=== PATIENT | female | born 1995 | race Caucasian/White ===

== ENCOUNTER 2017-10-30 19:59 | Emergency (ER) | payer SELFPAY ==
--- NOTE | 2017-10-30 20:22 | PDOC ---
Rapid Medical Evaluation Time Seen by Provider: 10/30/17 20:16 Medical Evaluation: 10/30/17 20:16 I have performed a brief in-person evaluation of this patient. The patient presents with a chief complaint of: headache x 1 week Patient reports left sided headache with nausea, denies blurred vision or photophobia Pertinent physical exam findings: NAD normocephalic, neck supple, no lumps felt on scalp unlabored breathing grossly neurologically intact I have ordered the following: urine pt, saline lock, acetaminophen, iv solution and reglan The patient will proceed to the ED for further evaluation.
[2017-10-30 20:24] VITALS: BMI 22.0
[2017-10-30] MEDS ORDERED: ACETAMINOPHEN 500 MG TABLET (FP) PO ONE (20:24)
[2017-10-30] MEDS ORDERED: METOCLOPRAMIDE HCL INJECTION 10 MG/2 ML VIAL IVPUSH ONE (20:25)
[2017-10-30] MEDS ORDERED: SODIUM CHLORIDE 0.9% 500 ML INFUS.BAG IV ONE (20:25)
--- NOTE | 2017-10-30 20:39 | PDOC ---
Attending Attestation - Resident Resident Name: Les Vee - ED Attending Attestation I have performed the following: I have examined & evaluated the patient, The case was reviewed & discussed with the resident, I agree w/resident's findings & plan, Exceptions are as noted
[2017-10-30] MEDS ORDERED: METOCLOPRAMIDE HCL INJECTION 10 MG/2 ML VIAL ONE (20:46)
[2017-10-30] MEDS ORDERED: ACETAMINOPHEN 325 MG TABLET (FP) ONE (20:46)
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
[2017-10-30] MEDS ORDERED: ACETAMINOPHEN/CAFFEINE/BUTALBITAL 1 TAB PO ONE (21:21)
[2017-10-30] MEDS ORDERED: ACETAMINOPHEN/CAFFEINE/BUTALBITAL 1 TAB ONE (21:27)
[2017-10-30] MEDS ORDERED: DEXAMETHASONE SOD PHOSPHATE 10 MG/1 ML VIAL IVPUSH ONE (22:16)
[2017-10-30] MEDS ORDERED: KETOROLAC TROMETHAMINE 30 MG/1 ML VIAL IVPUSH ONE (22:16)
[2017-10-30] MEDS ORDERED: DEXAMETHASONE SOD PHOSPHATE 10 MG/1 ML VIAL ONE (22:20)
[2017-10-30] MEDS ORDERED: KETOROLAC TROMETHAMINE 30 MG/1 ML VIAL ONE (22:20)
[2017-10-30] MEDS ORDERED: SUMATRIPTAN SUCCINATE 6 MG/0.5 ML VIAL SQ ONE (23:55)
[2017-10-30] MEDS ORDERED: SUMATRIPTAN SUCCINATE 6 MG/0.5 ML VIAL ONE (23:59)
[2017-10-31 00:30] VITALS: BP 134/80; PULSE 82; TEMP 98.3
== END 2017-10-31 00:48 | disposition home or self-care (01) ==
LOC: JER 19:59
PROC: 3E0333Z Introduction of Anti-inflammatory into Peripheral Vein, Percutaneous Approach (ICD-10-PCS; principal; 2017-10-30)
PROC: 3E0333Z Introduction of Anti-inflammatory into Peripheral Vein, Percutaneous Approach (ICD-10-PCS; 2017-10-30)
PROC: 3E033GC Introduction of Other Therapeutic Substance into Peripheral Vein, Percutaneous Approach (ICD-10-PCS; 2017-10-30)
PROC: 3E033GC Introduction of Other Therapeutic Substance into Peripheral Vein, Percutaneous Approach (ICD-10-PCS; 2017-10-30)
PROC: 3E023GC Introduction of Other Therapeutic Substance into Muscle, Percutaneous Approach (ICD-10-PCS; 2017-10-30)
DX: R51 Headache (principal)
CPT/HCPCS: 84703; 99282-25; J1100

== ENCOUNTER 2018-03-02 16:49 | Emergency (ER) | payer SELFPAY ==
[2018-03-02 16:55] VITALS: BP 125/83; PULSE 96; TEMP 98.4; BMI 22.6
[2018-03-02 17:17] LABS: URINE APPEARANCE CLEAR; URINE BILIRUBIN NEGATIVE (<2.0 mg/dL); URINE COLOR LTYELLOW; URINE GLUCOSE (UA) NEGATIVE (NEGATIVE); URINE KETONE NEGATIVE (NEGATIVE); URINE LEUK ESTERASE NEGATIVE (NEGATIVE); URINE NITRITE NEGATIVE (NEGATIVE); URINE PROTEIN NEGATIVE (NEGATIVE); URINE UROBILINOGEN NEGATIVE mg/dL (0.2-1.0)
[2018-03-02 17:20] LABS: EPI CELLS RARE /HPF (FEW); URINE MUCUS RARE
--- NOTE | 2018-03-02 17:55 | PDOC ---
History of Present Illness - General Chief Complaint: Vaginal Bleeding Stated Complaint: VAGINAL BLEEDING (9 WKS ) History Source: Patient - History of Present Illness Timing/Duration: reports: other Past History - Past Medical History Allergies/Adverse Reactions: Allergies Allergy/AdvReac Type Severity Reaction Status Date / Time No Known Allergies Allergy Verified 03/02/18 16:51 Home Medications: Ambulatory Orders NK [No Known Home Medication] 10/30/17 COPD: No Other medical history: DENIES. - Suicide/Smoking/Psychosocial Hx Smoking History: Never smoked Have you smoked in the past 12 months: No Hx Alcohol Use: No Drug/Substance Use Hx: No Substance Use Type: None Review of Systems - Review of Systems Constitutional: No: Fever ABD/GI: No: Nausea, Vomiting, Abdominal cramping : No: Dysuria, Flank Pain, Hematuria *Physical Exam - Vital Signs Last Vital Signs Temp Pulse Resp BP Pulse Ox 98.4 F 96 H 17 125/83 97 03/02/18 16:51 03/02/18 16:51 03/02/18 16:51 03/02/18 16:51 03/02/18 16:51 - Physical Exam General Appearance: Yes: Appropriately Dressed. No: Apparent Distress HEENT: positive: Normal Voice Neck: positive: Supple Respiratory/Chest: negative: Respiratory Distress Female Pelvic Exam: positive: normal external exam, normal adnexa, vaginal bleeding (minimal vag bleed, os closed). negative: cervical os closed, CMT, lesions Gastrointestinal/Abdominal: positive: Soft. negative: Tender Musculoskeletal: negative: CVA Tenderness Integumentary: positive: Dry, Warm Neurologic: positive: Fully Oriented, Alert, Normal Mood/Affect ED Treatment Course - ADDITIONAL ORDERS Additional order review: Laboratory Results 03/02/18 03/02/18 17:05 17:05 Urine Color Ltyellow Urine Appearance Clear Urine pH 6.0 Ur Specific [place] 1.012 Urine Protein Negative Urine Glucose (UA) Negative Urine Ketones Negative Urine Blood 3+ H Urine Nitrite Negative Urine Bilirubin Negative Urine Urobilinogen Negative Ur Leukocyte Esterase Negative Urine WBC (Auto) 5 Urine RBC (Auto) 24 Ur Epithelial Cells Rare Urine Mucus Rare Urine HCG, Qual Positive Medical Decision Making - Medical Decision Making 03/02/18 17:55 22-year-old female, 0, irreg menses, LMP 12/27/17, found out she was >2 weeks ago, no yet, here w/ vaginal spotting x several days w/ /small clots, no abd pain, dysuria, n/v/f/c. See exam 1st trimester bleed Stable w/ benign abd and closed os w/ minimal vag bleed, no clots -ua neg -T&S -Beta -US 03/02/18 19:05 US read as +IUP @5 weeks 5 days w/ no cardiac activity, ? demise per radiology. Pt signed out to [facility] pending T&S and beta. Pt will need 48 hr f /u
--- NOTE | 2018-03-02 19:48 | PDOC ---
*Physical Exam - Vital Signs Last Vital Signs Temp Pulse Resp BP Pulse Ox 98.4 F 96 H 17 125/83 97 03/02/18 16:51 03/02/18 16:51 03/02/18 16:51 03/02/18 16:51 03/02/18 16:51 ED Treatment Course - LABORATORY CBC & Chemistry Diagram: 03/02/18 19:40 - ADDITIONAL ORDERS Additional order review: Laboratory Results 03/02/18 03/02/18 03/02/18 18:16 18:16 17:05 Beta HCG, Quant Cancelled Urine Color Ltyellow Urine Appearance Clear Urine pH 6.0 Ur Specific [place] 1.012 Urine Protein Negative Urine Glucose (UA) Negative Urine Ketones Negative Urine Blood 3+ H Urine Nitrite Negative Urine Bilirubin Negative Urine Urobilinogen Negative Ur Leukocyte Esterase Negative Urine WBC (Auto) 5 Urine RBC (Auto) 24 Ur Epithelial Cells Rare Urine Mucus Rare Urine HCG, Qual Blood Type A POSITIVE Antibody Screen Negative 03/02/18 17:05 Beta HCG, Quant Urine Color Urine Appearance Urine pH Ur Specific [place] Urine Protein Urine Glucose (UA) Urine Ketones Urine Blood Urine Nitrite Urine Bilirubin Urine Urobilinogen Ur Leukocyte Esterase Urine WBC (Auto) Urine RBC (Auto) Ur Epithelial Cells Urine Mucus Urine HCG, Qual Positive Blood Type Antibody Screen Medical Decision Making - Medical Decision Making 03/02/18 19:48 type and screen: a + cbc: pending. plan to d/c patient has a obstetrics gyn clinic for follow up. *DC/Admit/Observation/Transfer Diagnosis at time of Disposition: Threatened in early - Discharge Dispostion Disposition: HOME - Referrals - Patient Instructions Printed Discharge Instructions: DI for Miscarriage Additional Instructions: Drink plenty of fluids Return to the emergency room if you are soaking through 2 pads per hour, Fever, severe abdominal pain. Follow-up with your tumor registrar in 2 days for repeat ultrasound and lab work. Last beta hC.6 - Post Discharge Activity Forms/Work/School Notes: Back to Work
[2018-03-02 19:49] LABS: BASO % 0.2 % (0-2.0); EOS % 0.2 % (0-4.5); HEMATOCRIT 39.7 % (32.4-45.2); HEMOGLOBIN 13.4 GM/dL (10.7-15.3); LYMPH % 22.8 % (8-40); MCH 30.8 pg (25.7-33.7); MCHC 33.7 g/dl (32.0-36.0); MEAN CELL VOLUME 91.6 fl (80-96); MEAN PLT VOLUME 6.9 fl (7.5-11.1); MONO % 4.8 % (3.8-10.2); PLATELET COUNT 250 K/MM3 (134-434); RBC 4.34 M/mm3 (3.60-5.2); RDW 13.5 % (11.6-15.6)
== END 2018-03-02 20:42 | disposition home or self-care (01) ==
LOC: JER 16:49
DX: O26.891 Other specified pregnancy related conditions, first trimester (principal); O20.0 Threatened abortion; Z3A.01 Less than 8 weeks gestation of pregnancy
CPT/HCPCS: 36415; 76801-TC; 76830-TC; 81003; 81015; 84702; 84703; 85025; 86850; 86900; 86901; 99282-25

== ENCOUNTER 2018-03-06 19:59 | Emergency (ER) | payer OTHER ==
[2018-03-06 20:11] VITALS: BP 130/60; PULSE 77; TEMP 98.2; BMI 22.6
--- NOTE | 2018-03-06 20:40 | PDOC ---
History of Present Illness - General Chief Complaint: Vaginal Bleeding Stated Complaint: VAGINAL BLEEDING (5WKS ) Time Seen by Provider: 03/06/18 20:40 Past History - Past Medical History Allergies/Adverse Reactions: Allergies Allergy/AdvReac Type Severity Reaction Status Date / Time No Known Allergies Allergy Verified 03/06/18 20:11 Home Medications: Ambulatory Orders NK [No Known Home Medication] 10/30/17 COPD: No - Reproductive History (#): 1 Para: 0 - Suicide/Smoking/Psychosocial Hx Smoking History: Never smoked Have you smoked in the past 12 months: No Hx Alcohol Use: No Drug/Substance Use Hx: No Substance Use Type: None *Physical Exam - Vital Signs Last Vital Signs Temp Pulse Resp BP Pulse Ox 98.2 F 77 18 130/60 99 03/06/18 20:09 03/06/18 20:09 03/06/18 20:09 03/06/18 20:09 03/06/18 20:09
--- NOTE | 2018-03-06 20:44 | PDOC ---
History of Present Illness - General Chief Complaint: Vaginal Bleeding Stated Complaint: VAGINAL BLEEDING (5WKS ) Time Seen by Provider: 03/06/18 20:40 - History of Present Illness Initial Comments: 03/06/18 20:45 Ms. Troy is a 22 yo female at 6w2d by US (Patient reports LMP December 27) w / no pmh who presents for evaluation of vaginal bleeding. She had originally presented 03/02/18 for same problem; TVUS was not able to evaluate activity. Patient reports she has had continued and increased bleeding and reports she has had abdominal pain today as well. Bleeding is now consistent with her menstrual cycle. Patient has not established PHOTO TECHNOLOGIST f/u at this time. The patient denies chest pain, shortness of breath, headache and dizziness. Denies fever, chills, nausea, vomit, diarrhea and constipation. Denies dysuria, frequency, urgency and hematuria. Allergies: NKDA Past History - Past Medical History Allergies/Adverse Reactions: Allergies Allergy/AdvReac Type Severity Reaction Status Date / Time No Known Allergies Allergy Verified 03/06/18 20:11 Home Medications: Ambulatory Orders NK [No Known Home Medication] 10/30/17 COPD: No - Reproductive History (#): 1 Para: 0 - Suicide/Smoking/Psychosocial Hx Smoking History: Never smoked Have you smoked in the past 12 months: No Hx Alcohol Use: No Drug/Substance Use Hx: No Substance Use Type: None Review of Systems - Review of Systems Comments:: 03/06/18 20:45 GENERAL/CONSTITUTIONAL: No fever or chills. No weakness. HEAD, EYES, EARS, NOSE AND THROAT: No change in vision. No ear pain or discharge. No sore throat. CARDIOVASCULAR: No chest pain or shortness of breath RESPIRATORY: No cough, wheezing, or hemoptysis. GASTROINTESTINAL: +Generalized abdominal pain. No nausea, vomiting, diarrhea or constipation. GENITOURINARY: +Pelvic pain as described. No dysuria, frequency, or change in urination. MUSCULOSKELETAL: No joint or muscle swelling or pain. No neck or back pain. SKIN: No rash NEUROLOGIC: No headache, vertigo, loss of consciousness, or change in strength/ sensation. ENDOCRINE: No increased thirst. No abnormal weight change HEMATOLOGIC/LYMPHATIC: No anemia, easy bleeding, or history of blood clots. ALLERGIC/IMMUNOLOGIC: No hives or skin allergy. *Physical Exam - Vital Signs Last Vital Signs Temp Pulse Resp BP Pulse Ox 98.2 F 77 18 130/60 99 03/06/18 20:09 03/06/18 20:09 03/06/18 20:09 03/06/18 20:09 03/06/18 20:09 - Physical Exam Comments: 03/06/18 20:45 GENERAL: Awake, alert, and fully oriented, in no acute distress HEAD: No signs of trauma, normocephalic, atraumatic EYES: PERRLA, EOMI, sclera anicteric, conjunctiva clear ENT: Auricles normal inspection, hearing grossly normal, nares patent, oropharynx clear without exudates. Moist mucosa NECK: Normal ROM, supple, no lymphadenopathy, JVD, or masses LUNGS: No distress, speaks full sentences, clear to auscultation bilaterally HEART: Regular rate and rhythm, normal S1 and S2, no murmurs, rubs or gallops, peripheral pulses normal and equal bilaterally. ABDOMEN: +Generalized abdominal tenderness. Soft, normoactive bowel sounds. No guarding, no rebound. No masses EXTREMITIES: Normal inspection, Normal range of motion, no edema. No clubbing or cyanosis. NEUROLOGICAL: Cranial nerves II through XII grossly intact. Normal speech, normal gait, no focal sensorimotor deficits SKIN: Warm, Dry, normal turgor, no rashes or lesions noted. : +Moderate blood noted in vaginal vault. Os closed. Pelvic tenderness noted. ED Treatment Course - LABORATORY CBC & Chemistry Diagram: 03/06/18 21:25 03/06/18 21:25 Medical Decision Making - Medical Decision Making 03/06/18 22:40 Ms. Troy is a 22 yo female w/ pmh as described who presents for evaluation of bleeding in . Patient prior beta 4 days ago [place] [id number], patient noted to have beta to 4954 today. Exam notable for blood on vaginal exam. Patient informed she is likely losing her , no other acute process suspected at this time. Discharging patient to home with PHOTO TECHNOLOGIST follow-up for confirmation. Discharging to home. Laboratory Results - last 24 hr 03/06/18 03/06/18 03/06/18 21:25 21:25 21:41 WBC 9.8 RBC 4.00 Hgb 12.7 Hct 36.8 MCV 91.9 MCH 31.7 MCHC 34.5 RDW 13.4 Plt Count 232 MPV 7.2 L Absolute Neuts (auto) 7.5 Neutrophils % 76.1 Lymphocytes % 18.1 D Monocytes % 5.2 Eosinophils % 0.5 D Basophils % 0.1 Nucleated RBC % 0 Sodium 143 Potassium 3.9 Chloride 109 H Carbon Dioxide 25 Anion Gap 9 BUN 11 Creatinine 0.7 Creat Clearance w eGFR > 60 Random Glucose 98 Calcium 8.8 Total Bilirubin 0.3 AST 18 ALT 22 Alkaline Phosphatase 54 Total Protein 7.2 Albumin 3.9 Beta HCG, Quant 4954.4 Urine Color Ltyellow Urine Appearance Clear Urine pH 5.0 Ur Specific [place] 1.020 Urine Protein Negative Urine Glucose (UA) Negative Urine Ketones Negative Urine Blood 3+ H Urine Nitrite Negative Urine Bilirubin Negative Urine Urobilinogen Negative Ur Leukocyte Esterase Negative Urine WBC (Auto) 3 Urine RBC (Auto) 93 Ur Epithelial Cells Rare Urine Mucus Rare *DC/Admit/Observation/Transfer Diagnosis at time of Disposition: Threatened in early - Discharge Dispostion Disposition: HOME - Referrals Referrals: Theresa Farrell MD [Staff Physician] - - Patient Instructions Printed Discharge Instructions: DI for Miscarriage Additional Instructions: Please follow-up with PHOTO TECHNOLOGIST for further evaluation. Return to ER if any continued bleeding, fever, chills, pain, or other concerning symptoms. Print Language: [place] - Post Discharge Activity
[2018-03-06] MEDS ORDERED: ACETAMINOPHEN 1000 MG/100 ML VIAL (NON FORMULARY) IVPB ONE (20:55)
[2018-03-06 21:36] LABS: BASO % 0.1 % (0-2.0); EOS % 0.5 % (0-4.5); HEMATOCRIT 36.8 % (32.4-45.2); HEMOGLOBIN 12.7 GM/dL (10.7-15.3); LYMPH % 18.1 % (8-40); MCH 31.7 pg (25.7-33.7); MCHC 34.5 g/dl (32.0-36.0); MEAN CELL VOLUME 91.9 fl (80-96); MEAN PLT VOLUME 7.2 fl (7.5-11.1); MONO % 5.2 % (3.8-10.2); NEUT % 76.1 % (42.8-82.8); PLATELET COUNT 232 K/MM3 (134-434); RDW 13.4 % (11.6-15.6); WHITE BLOOD COUNT 9.8 K/mm3 (4.0-10.0)
[2018-03-06 21:55] LABS: URINE APPEARANCE CLEAR; URINE BILIRUBIN NEGATIVE (<2.0 mg/dL); URINE COLOR LTYELLOW; URINE GLUCOSE (UA) NEGATIVE (NEGATIVE); URINE KETONE NEGATIVE (NEGATIVE); URINE LEUK ESTERASE NEGATIVE (NEGATIVE); URINE NITRITE NEGATIVE (NEGATIVE); URINE PROTEIN NEGATIVE (NEGATIVE); URINE UROBILINOGEN NEGATIVE mg/dL (0.2-1.0)
[2018-03-06 22:00] LABS: ALBUMIN 3.9 g/dl (3.4-5.0); ANION GAP 9 (8-16); BILIRUBIN,TOTAL 0.3 mg/dL (0.2-1.0); BLOOD UREA NITROGEN 11 mg/dL (7-18); CALCIUM 8.8 mg/dL (8.5-10.1); CHLORIDE 109 mmol/L (98-107); CO2 25 mmol/L (21-32); CREATININE 0.7 mg/dL (0.55-1.02); GLUCOSE,RANDOM 98 mg/dL (74-106); SGPT/ALT 22 U/L (12-78); SODIUM 143 mmol/L (136-145); TOT PROT 7.2 g/dl (6.4-8.2)
[2018-03-06] MEDS ORDERED: SODIUM CHLORIDE 1,000 ML IV STA (22:02)
[2018-03-06 22:09] LABS: EPI CELLS RARE /HPF (FEW); URINE MUCUS RARE
[2018-03-06 22:14] LABS: ALK PHOS 54 U/L (45-117)
[2018-03-06 22:34] LABS: POTASSIUM 3.9 mmol/L (3.5-5.1); SGOT/AST 18 U/L (15-37)
--- NOTE | 2018-03-07 01:22 | PDOC ---
Attending Attestation - HPI HPI: 03/07/18 01:27 The patient is a 22 year old female currently 6 weeks with no past medical history who presents to the emergency department for evaluation of vaginal bleeding. The patient reports increased vaginal bleeding with associated abdominal pain. Pt reports having transvaginal ultrasound done on with failure to evaluate activity. LMP 12/27/17. The patient denies cp, sob, headache, and dizziness. Denies f/c, n/v, and any bowel/rurinary symptoms. Allergies: NKDA Social History: No reported alcohol, cigarette, or drug use. - Physicial Exam PE: GENERAL: Awake, alert, and fully oriented, in no acute distress EYES: PERRLA, EOMI, sclera anicteric, conjunctiva clear NECK: Normal ROM, supple, no lymphadenopathy, JVD, or masses LUNGS: Breath sounds equal, clear to auscultation bilaterally. No wheezes, and no crackles HEART: Regular rate and rhythm, normal S1 and S2, no murmurs, rubs or gallops ABDOMEN: Soft, nontender, normoactive bowel sounds. No flank pain. No guarding, no rebound. No masses PELVIC: os closed. (+)Minimal blood in vault. (+)Left adnexal tenderness. EXTREMITIES: Normal range of motion, no edema. No clubbing or cyanosis. No cords, erythema, or tenderness NEUROLOGICAL: Cranial nerves II through XII grossly intact. Normal speech, normal gait SKIN: Warm, Dry, normal turgor, no rashes or lesions noted. <Yuliana Mcghee - Last Filed: 03/07/18 01:27> - Resident Resident Name: Jacobo Kevin - ED Attending Attestation I have performed the following: I have examined & evaluated the patient, The case was reviewed & discussed with the resident, I agree w/resident's findings & plan, Exceptions are as noted - Medical Decision Making 03/07/18 21:11 HCG going down. Pt will be discharged home. 03/07/18 21:12 Blood time A+ <Analilia Gamez - Last Filed: 03/07/18 21:12> Attestations - Attestations Documentation prepared by Yuliana Mcghee, acting as medical secretary receptionist for Analilia Gamez MD. <Yuliana Mcghee - Last Filed: 03/07/18 01:27>
== END 2018-03-06 23:10 | disposition home or self-care (01) ==
LOC: JER 19:59
PROC: 3E0337Z Introduction of Electrolytic and Water Balance Substance into Peripheral Vein, Percutaneous Approach (ICD-10-PCS; principal; 2018-03-06)
PROC: 3E033NZ Introduction of Analgesics, Hypnotics, Sedatives into Peripheral Vein, Percutaneous Approach (ICD-10-PCS; 2018-03-06)
DX: O26.891 Other specified pregnancy related conditions, first trimester (principal); O20.0 Threatened abortion; Z3A.01 Less than 8 weeks gestation of pregnancy
CPT/HCPCS: 36415; 80053; 81003; 81015; 84702; 85025; 86850; 86900; 86901; 87086; 96361; 96374; 99282-25; J0131; J7030

== ENCOUNTER 2018-11-20 12:35 | Emergency (ER) | payer OTHER ==
[2018-11-20 12:44] VITALS: BP 137/72; PULSE 92; TEMP 98.3; BMI 23.2
[2018-11-20] MEDS ORDERED: SODIUM CHLORIDE 1,000 ML IV STA (13:28)
[2018-11-20] MEDS ORDERED: ACETAMINOPHEN 1000 MG/100 ML VIAL (NON FORMULARY) IVPB ONE (13:28)
[2018-11-20] MEDS ORDERED: ACETAMINOPHEN INJECTION 100 ML IVPB ONE (13:33)
--- NOTE | 2018-11-20 13:44 | PDOC ---
History of Present Illness - General Chief Complaint: Diarrhea Stated Complaint: BODY ACHES / ABD PAIN Time Seen by Provider: 11/20/18 12:46 History Source: Patient Exam Limitations: No Limitations Past History - Travel Traveled outside of the country in the last 30 days: No Close contact w/someone who was outside of country & ill: No - Past Medical History Allergies/Adverse Reactions: Allergies Allergy/AdvReac Type Severity Reaction Status Date / Time No Known Allergies Allergy Verified 11/20/18 12:44 Home Medications: Ambulatory Orders Mag Hydrox/Al Hydrox/Simeth [Mylanta Oral Suspension -] 30 ml PO BID #1 bottle 11/20/18 Ondansetron [Zofran Odt -] 4 mg SL TID #10 od.tablet 11/20/18 COPD: No - Reproductive History (#): 1 Para: 0 Therapeutic (s) & number: No - Suicide/Smoking/Psychosocial Hx Smoking History: Never smoked Have you smoked in the past 12 months: No Hx Alcohol Use: Yes (OCCASIONALLY) Drug/Substance Use Hx: No Substance Use Type: None Review of Systems - Review of Systems Able to Perform ROS?: Yes Comments:: 11/20/18 13:38 CONSTITUTIONAL: Present: body aches Absent: fever, chills, diaphoresis, generalized weakness, malaise, loss of appetite HEENT: Present: rhinorrhea, nasal congestion Absent: throat pain, difficulty swallowing , mouth swelling, ear pain, eye pain, visual Changes CARDIOVASCULAR: Absent: chest pain, loss of consciousness, palpitations, irregular heart rate, peripheral edema RESPIRATORY: Present: Cough Absent: shortness of breath, dyspnea with exertion, orthopnea, wheezing, stridor, hemoptysis GASTROINTESTINAL: Present: crampy abdominal pain, diarrhea Absent: abdominal pain, abdominal distension, nausea, vomiting, diarrhea, constipation, melena, hematochezia SKIN: Absent: rash, itching, pallor NEUROLOGIC: Present: headache Absent: focal weakness or paresthesias, dizziness, unsteady gait, seizure, mental status changes, bladder or bowel incontinence Is the patient limited French proficient: No *Physical Exam - Vital Signs Last Vital Signs Temp Pulse Resp BP Pulse Ox 98.3 F 92 H 16 137/72 98 11/20/18 12:40 11/20/18 12:40 11/20/18 12:40 11/20/18 12:40 11/20/18 12:40 - Physical Exam Comments: 11/20/18 13:44 GENERAL: Well developed, well nourished. Awake and alert. No acute distress. HEENT: Normocephalic, atraumatic. PERRLA, EOMI. No conjunctival pallor. Sclera are non- icteric. Moist mucous membranes. Oropharynx is clear. NECK: Supple. Full ROM. No JVD. Carotid pulses 2+ and symmetric, without bruits. No thyromegaly. No lymphadenopathy. CARDIOVASCULAR: Regular rate and rhythm. No murmurs, rubs, or gallops. Distal pulses are 2+ and symmetric. PULMONARY: No evidence of respiratory distress. Lungs clear to auscultation bilaterally. No wheezing, rales or rhonchi. ABDOMINAL: Diffuse abdominal tenderness. Soft. Non-tender. Non-distended. No rebound or guarding. No organomegaly. Normoactive bowel sounds. MUSCULOSKELETAL Normal range of motion at all joints. No bony deformities or tenderness. No CVA tenderness. EXTREMITIES: No cyanosis. No clubbing. No edema. No calf tenderness. SKIN: Warm and dry. Normal capillary refill. No rashes. No jaundice. NEUROLOGICAL: Alert, awake, appropriate. Cranial nerves 2-12 intact. No deficits to light touch and temperature in face, upper extremities and lower extremities. No motor deficits in the in face, upper extremities and lower extremities. Normoreflexic in the upper and lower extremities. Normal speech. Toes are down- going bilaterally. Gait is normal without ataxia. PSYCHIATRIC: Cooperative. Good eye contact. Appropriate mood and affect. Medical Decision Making - Medical Decision Making 11/20/18 13:45 HPI: the patient is a 23-year-old female with no past medical history who presents to the emergency department for body aches, crampy abdominal pain, diarrhea, cough for 5 days. Patient states that the pain and diarrhea started on and she has vomited twice since then. Denies recent travel, antibiotic use. Denies sick contacts. Denies fevers, chills, sore throat, constipation. She also admits to dysuria. A/P: Diarrhea with abdominal pain and dysuria. Diffuse crampy abdominal pain on exam. No focal findings. Abdomen soft Order placed for urine. We will also give IV fluids and off her meth at this time for symptom and treatment. Reevaluate 11/20/18 15:34 Urine is negative for Low suspistion for UTI On repeat abdominal exam, pain is improved however still with diffuse discomfort Strict return precautions given if her pain localizes Will discharge home with PCP follow up I discussed the physical exam findings, ancillary test results and final diagnoses with the patient. I answered all of the patient's questions. The patient was satisfied with the care received and felt comfortable with the discharge plan and treatment plan. The Patient agrees to follow up with the primary care physician/specialist within 24-72 hours. Return precautions were given. *DC/Admit/Observation/Transfer Diagnosis at time of Disposition: Gastroenteritis - Discharge Dispostion Disposition: HOME Condition at time of disposition: Stable Decision to Admit order: No - Referrals Referrals: Torey Degroot MD [Staff Physician] - - Patient Instructions Printed Discharge Instructions: DI for Viral Gastroenteritis -- Adult Additional Instructions: You have vomiting and diarrhea. Take the Zofran as directed as needed for nausea or vomiting. Take the Mylanta every 12 hours as needed for upset stomach. Avoid all dairy products until 48 hours after the vomiting/diarrhea has resolved. Eat a bland diet including apple sauce, toast, bananas, and plain rice Drink plenty of fluids including pedialyte, watered down juices and water Follow up with your primary care doctor this week Return to the ED if you develop fevers, abdominal pain, worsening vomiting, or if you have any changes in your symptoms. - Post Discharge Activity Forms/Work/School Notes: Back to Work
[2018-11-20] MEDS ORDERED: MAG HYDROX/AL HYDROX/SIMETH 30 ML UNIT-DOSE CUP PO ONE (14:56)
[2018-11-20] MEDS ORDERED: IBUPROFEN 600 MG TABLET (FP) PO ONE ×2 (14:58→15:25)
[2018-11-20] MEDS ORDERED: MAG HYDROX/AL HYDROX/SIMETH 30 ML UNIT-DOSE CUP ONE (15:04)
[2018-11-20 15:09] LABS: EPI CELLS 23.1 /HPF (0-5/HPF); URINE APPEARANCE CLOUDY; URINE BACTERIA 295.4 /hpf (NEGATIVE); URINE BILIRUBIN NEGATIVE (NEGATIVE); URINE CASTS 29 /hpf (0-8); URINE COLOR YELLOW; URINE GLUCOSE (UA) NEGATIVE (NEGATIVE); URINE KETONE 3+ (NEGATIVE); URINE LEUK ESTERASE TRACE (NEGATIVE); URINE NITRITE NEGATIVE (NEGATIVE); URINE PROTEIN 1+ (NEGATIVE); URINE WBC 9 /hpf (0-5)
[2018-11-20 15:52] LABS: URINE RBC 4.9 /hpf (0-4)
== END 2018-11-20 15:38 | disposition home or self-care (01) ==
LOC: JERFT 12:35
PROC: 3E033NZ Introduction of Analgesics, Hypnotics, Sedatives into Peripheral Vein, Percutaneous Approach (ICD-10-PCS; principal; 2018-11-20)
DX: K52.9 Noninfective gastroenteritis and colitis, unspecified (principal)
CPT/HCPCS: 81003; 84703; 87086; 96374; 99281-25; J0131; J7030

== ENCOUNTER 2021-11-14 19:55 | Emergency (ER) | payer OTHER ==
[2021-11-14 20:11] VITALS: BP 137/82; PULSE 74; TEMP 98.3; BMI 22.6
== END 2021-11-14 22:13 | disposition home or self-care (01) ==
LOC: JERFT 19:55
DX: H00.012 Hordeolum externum right lower eyelid (principal)
CPT/HCPCS: 99282-25